=== PATIENT | female | born 1945 | race Caucasian/White ===

== ENCOUNTER 2023-03-09 11:15 | Day surgery (SDC) | payer MEDICARE ==
[2023-03-09] MEDS ORDERED: Depo-Medrol 40 MG/ML IM ONE (11:16)
[2023-03-09] MEDS ORDERED: Sodium Chloride 0.9(Preservative Free) 10 ML IJ ONE (11:16)
[2023-03-09] MEDS ORDERED: XYLOCAINE-MPF 1% 5ML SDV IJ ONE (11:16)
--- NOTE | 2023-03-09 16:58 | XRAY ---
Indication: Lumbar ERICK. Intraoperative fluoroscopy provided for 12 seconds. 2 digital spot image submitted for interpretation demonstrates posterior needle tip projecting posterior to lumbosacral junction. Small amount of contrast injected for needle tip placement. Correlate with intraoperative findings/report.
--- NOTE | 2023-03-09 16:59 | XRAY ---
12 seconds of fluoroscopy was used in surgery for a lumbar ERICK.
== END 2023-03-09 14:56 | disposition home or self-care (01) ==
LOC: SDC-PAIN 11:15
PROVIDERS: ATTEND Psychiatry & Neurology Pain Medicine
DX: M54.16 Radiculopathy, lumbar region (principal)
CPT/HCPCS: 62323; 72100; 77003; J1030; Q9966